=== PATIENT | male | born 1995 | race Caucasian/White ===

== ENCOUNTER 2016-07-31 01:47 | Emergency (ER) | payer SELFPAY ==
[~2016-07-31] VITALS: Ht 167.6 cm; Wt 65.0 kg
[2016-07-31] MEDS ORDERED: LORAZEPAM 1MG TABLET PO ONE (03:15)
[2016-07-31 05:10] VITALS: BP 124/78
== END 2016-07-31 05:20 | disposition home or self-care (01) ==
LOC: ER 01:48
DX: R07.89 Other chest pain (principal)
CPT/HCPCS: 71010; 93005; 99284; Z7610